=== PATIENT | female | born 1945 | race Caucasian/White ===

== ENCOUNTER 2022-03-28 04:22 | Day surgery (SDC) | payer OTHER, BC ==
[2022-03-27 09:22] VITALS: BMI 29.0
[2022-03-28 09:38] VITALS: TEMP 97.4
[2022-03-28 10:15] VITALS: BP 102/43; PULSE 78; RESP 20
== END 2022-03-28 10:25 | disposition home or self-care (01) ==
LOC: JASU-ENDO 04:22
PROVIDERS: ATTEND Internal Medicine
PROC: 0DJD8ZZ Inspection of Lower Intestinal Tract, Via Natural or Artificial Opening Endoscopic (ICD-10-PCS; principal; 2022-03-28 09:00)
DX: Z12.11 Encounter for screening for malignant neoplasm of colon (principal); K64.8 Other hemorrhoids